=== PATIENT | male | born 2000 | race Caucasian/White ===

== ENCOUNTER 2022-05-20 08:52 | Emergency (ER) | payer SELFPAY ==
[~2022-05-20] VITALS: Ht 172.7 cm; Wt 74.0 kg
[2022-05-20 10:06] VITALS: BP 139/99
[2022-05-20] MEDS ORDERED: ondansetron 4mg rapidly disintigrating tab PO ONE (10:15)
[2022-05-20 10:33] LABS: BASOPHILS % (AUTO) 0.5 % (0-1); EOSINOPHILS % (AUTO) 0.7 % (0-6); HEMATOCRIT 44.6 % (42.0-52.0); LYMPHOCYTES # (AUTO) 1.8 X10'3 (1.1-4.8); MEAN CORPUSCULAR HEMOGLOBIN 29.4 PG (27.0-31.0); MEAN CORPUSCULAR HGB CONC 33.7 g/dL (33.0-36.5); MEAN CORPUSCULAR VOLUME 87.2 FL (78-98); MEAN PLATELET VOLUME 9.1 FL (7.4-10.4); MONOCYTES # (AUTO) 0.6 X10'3 (0-0.9); MONOCYTES % (AUTO) 10.8 % (2-12); NEUTROPHILS # (AUTO) 3.1 X10'3 (1.8-7.7); PLATELET COUNT 265 X10'3 (140-440); RED BLOOD COUNT 5.11 X10'6 (4.70-6.10); RED CELL DISTRIBUTION WIDTH 12.5 % (11.5-14.5); WHITE BLOOD COUNT 5.6 X10'3 (4.5-11.0)
[2022-05-20 10:42] LABS: ALANINE AMINOTRANSFERASE 66 U/L (12-78); ALBUMIN 4.3 G/DL (3.4-5.0); ALBUMIN/GLOBULIN RATIO 1.2 (1.1-1.5); ALKALINE PHOSPHATASE 72 IU/L (46-116); ANION GAP 10 (8-16); ASPARTATE AMINO TRANSFERASE 30 U/L (10-37); BILIRUBIN,TOTAL 0.6 MG/DL (0.1-1.0); BLOOD UREA NITROGEN 19 MG/DL (7-18); BUN/CREATININE RATIO 21.3 (5.4-32.0); CALCIUM 9.1 MG/DL (8.5-10.1); CHLORIDE 107 MMOL/L (99-107); CREATININE 0.89 MG/DL (0.60-1.10); GLUCOSE 94 MG/DL (70-104); LIPASE 76 U/L (73-393); POTASSIUM 3.7 MMOL/L (3.5-5.1); SODIUM 144 MMOL/L (135-145); TOTAL CARBON DIOXIDE 26.6 MMOL/L (24-32); TOTAL PROTEIN 7.8 G/DL (6.4-8.2); eGFR > 90 ML/MIN
[2022-05-20 10:57] LABS: CLARITY,URINE SLIGHTLY CLOUDY (Clear); COLOR,URINE YELLOW (Yellow); GLUCOSE, URINE NEGATIVE (Neg); KETONES,URINE TRACE mg/dl (Neg); LEUKOCYTE ESTERASE ,URINE NEGATIVE (Neg); NITRITES, URINE NEGATIVE (Neg); OCCULT BLOOD,URINE NEGATIVE (Neg); PROTEIN,URINE NEGATIVE (Neg); UROBILINOGEN,URINE 0.2 E.U/dL (0.2-1.0)
[2022-05-20 10:59] LABS: UA COLLECTION TYPE CLN CATCH MIDSTREAM
[2022-05-20 11:38] LABS: BACTERIA,URINE NONE SEEN /HPF (Neg); MUCUS STRANDS FEW /LPF (Neg); RBC,URINE 0-2 /HPF (0-2); SQUAMOUS EPITHELIAL CELL,UR NONE SEEN /LPF (FEW); WBC,URINE 0-4 /HPF (0-4)
== END 2022-05-20 12:10 | disposition home or self-care (01) ==
LOC: ER 08:52
DX: A08.4 Viral intestinal infection, unspecified (principal); Z79.899 Other long term (current) drug therapy
CPT/HCPCS: 36415; 80053; 81001; 83690; 85025; 99283

== ENCOUNTER 2024-05-31 08:03 | Emergency (ER) | payer BC ==
[~2024-05-31] VITALS: Ht 172.7 cm; Wt 91.5 kg
[2024-05-31 08:40] LABS: BILIRUBIN,URINE NEGATIVE (Neg); CLARITY,URINE CLOUDY (Clear); COLOR,URINE YELLOW (Yellow); GLUCOSE, URINE NEGATIVE (Neg); KETONES,URINE NEGATIVE (Neg); LEUKOCYTE ESTERASE ,URINE NEGATIVE (Neg); NITRITES, URINE NEGATIVE (Neg); OCCULT BLOOD,URINE LARGE (Neg); PROTEIN,URINE TRACE mg/dl (Neg); UROBILINOGEN,URINE 0.2 E.U/dL (0.2-1.0)
[2024-05-31] MEDS: ketorolac trometh. 30mg/ml inj. IV ONE (08:40)
[2024-05-31] MEDS: normal saline 1000ml 1,000 ML IV ONE (08:41)
[2024-05-31 08:43] LABS: BASOPHILS # (AUTO) 0.1 X10'3 (0-0.2); BASOPHILS % (AUTO) 0.7 % (0-1); EOSINOPHILS # (AUTO) 0.1 X10'3 (0-0.9); EOSINOPHILS % (AUTO) 0.7 % (0-6); HEMATOCRIT 45.8 % (42.0-52.0); HEMOGLOBIN 15.6 g/dl (14.0-17.9); LYMPHOCYTES # (AUTO) 2.3 X10'3 (1.1-4.8); LYMPHOCYTES % (AUTO) 26.4 % (21-51); MEAN CORPUSCULAR HEMOGLOBIN 29.5 PG (27.0-31.0); MEAN CORPUSCULAR HGB CONC 34.1 g/dL (33.0-36.5); MEAN CORPUSCULAR VOLUME 86.5 FL (78-98); MEAN PLATELET VOLUME 8.1 FL (7.4-10.4); MONOCYTES # (AUTO) 0.7 X10'3 (0-0.9); MONOCYTES % (AUTO) 7.7 % (2-12); NEUTROPHILS # (AUTO) 5.6 X10'3 (1.8-7.7); NEUTROPHILS % (AUTO) 64.5 % (42-75); PLATELET COUNT 263 X10'3 (140-440); RED BLOOD COUNT 5.29 X10'6 (4.70-6.10); RED CELL DISTRIBUTION WIDTH 12.7 % (11.5-14.5); WHITE BLOOD COUNT 8.7 X10'3 (4.5-11.0)
[2024-05-31 08:46] LABS: UA COLLECTION TYPE CLN CATCH MIDSTREAM
[2024-05-31 08:47] LABS: RBC,URINE TNTC /HPF (0-2); SQUAMOUS EPITHELIAL CELL,UR FEW /LPF (FEW)
[2024-05-31 08:48] LABS: MUCUS STRANDS MODERATE /LPF (Neg)
[2024-05-31 08:50] LABS: BACTERIA,URINE FEW /HPF (Neg)
[2024-05-31 08:56] LABS: ALANINE AMINOTRANSFERASE 65 U/L (12-78); ALBUMIN 3.9 G/DL (3.4-5.0); ALBUMIN/GLOBULIN RATIO 1.1 (1.1-1.5); ALKALINE PHOSPHATASE 73 IU/L (46-116); ANION GAP 10 (8-16); ASPARTATE AMINO TRANSFERASE 48 U/L (10-37); BILIRUBIN,TOTAL 0.5 MG/DL (0.1-1.0); BLOOD UREA NITROGEN 17 MG/DL (7-18); BUN/CREATININE RATIO 16.2 (10.0-20.0); CALCIUM 8.9 MG/DL (8.5-10.1); CHLORIDE 101 MMOL/L (99-107); CREATININE 1.05 MG/DL (0.60-1.10); GLUCOSE 105 MG/DL (70-104); LIPASE 31 U/L (16-77); POTASSIUM 3.8 MMOL/L (3.5-5.1); SODIUM 137 MMOL/L (135-145); TOTAL CARBON DIOXIDE 26.1 MMOL/L (24-32); TOTAL PROTEIN 7.3 G/DL (6.4-8.2); eCRCL 105 ML/MIN; eGFR 87 ML/MIN
[2024-05-31] MEDS ORDERED: OXYC-145 PO (09:42)
[2024-05-31] MEDS ORDERED: ONDA-243 PO (09:42)
[2024-05-31] MEDS ORDERED: FLO0.4C PO (09:42)
[2024-05-31 10:11] VITALS: BP 132/88; PULSE 65; RESP 16; TEMP 98.6; O2SAT 95
== END 2024-05-31 10:18 | disposition home or self-care (01) ==
LOC: ER 08:04
DX: N20.0 Calculus of kidney (principal); Z91.09 Other allergy status, other than to drugs and biological substances
CPT/HCPCS: 36415; 74176; 80053; 81001; 83690; 85025; 87088; 96361; 96374; 99285; J1885; J7030